=== PATIENT | female | born 1955 | race Hispanic/Latino ===

== ENCOUNTER 2017-12-29 16:34 | Emergency (ER) | payer OTHER ==
[2017-12-29] MEDS ORDERED: Sodium Chloride 0.9% 1,000 ML IV SCH (17:00)
[2017-12-29] MEDS ORDERED: Iohexol 240 (50 ml) PO ONE (17:01)
--- NOTE | 2017-12-29 17:02 | ED PDOC ---
HPI: General Adult Time Seen by Provider: 12/29/17 16:45 Chief Complaint (Nursing): Back Pain Chief Complaint (Provider): lower back pain, cough, congestion History Per: Patient History/Exam Limitations: no limitations Onset/Duration Of Symptoms: Days (x2) Current Symptoms Are (Timing): Still Present Additional Complaint(s): Selena Ramos is a 62 year old female, with a past medical history of HTN, hypercholesterolemia, breast CA, CVA, CAD with stent and x2 heart attacks, who presents to the emergency department complaining of bilateral lower back pain, cough, congestion, body aches, diarrhea, vomiting, abdominal pain and headache ongoing for x3 days. Patient also reports urinary frequency but states she has been drinking a lot of water. Patient further states headache is similar to previous headaches and is not the worst in her life. Patient reports having the flu shot x2 weeks ago. She took no medications for symptoms. She denies any dysuria, chest pain, shortness of breath, dizziness, numbness, tingling, weakness or other medical complaints. Of note, patient had a fever on arrival to ED. PMD: Dr. Lewis Past Medical History Reviewed: Historical Data, Nursing Documentation, Vital Signs Vital Signs: Last Vital Signs Temp 102.1 F H 12/29/17 16:42 Pulse 92 H 12/29/17 16:42 Resp 18 12/29/17 16:42 BP 175/80 H 12/29/17 16:42 Pulse Ox 96 12/29/17 16:42 - Medical History PMH: CAD, CVA, HTN, Hypercholesterolemia Other PMH: heart attack x2 - Surgical History Surgical History: Coronary Stent - Family History Family History: States: Unknown Family Hx - Home Medications Home Medications: Ambulatory Orders Medication Instructions Recorded Acetaminophen/Diphenhydramine 2 tab PO HS 12/29/17 [Tylenol Pm Ex-Strength Caplet] Atorvastatin [Lipitor] 40 mg PO DAILY 12/29/17 Gabapentin [Neurontin] 300 mg PO BID 12/29/17 Isosorbide Mononitrate [Isosorbide 30 mg PO DAILY 12/29/17 Mononitrate ER] Lisinopril [Prinivil] 5 mg PO DAILY 12/29/17 Metoprolol Succinate [Toprol Xl] 50 mg PO DAILY 12/29/17 Ticagrelor [Brilinta] 90 mg PO BID 12/29/17 - Allergies Allergies/Adverse Reactions: Allergies Allergy/AdvReac Type Severity Reaction Status Date / Time No Known Allergies Allergy Verified 12/29/17 16:42 Review of Systems ROS Statement: Except As Marked, All Systems Reviewed And Found Negative Constitutional: Positive for: Fever, Other (body aches) ENT: Positive for: Nose Congestion Cardiovascular: Negative for: Chest Pain Respiratory: Positive for: Cough. Negative for: Shortness of Breath Gastrointestinal: Positive for: Nausea, Vomiting, Abdominal Pain, Diarrhea Genitourinary Female: Positive for: Frequency. Negative for: Dysuria Musculoskeletal: Positive for: Back Pain (lower) Neurological: Positive for: Headache. Negative for: Weakness, Numbness (tingling), Dizziness Physical Exam - Reviewed Nursing Documentation Reviewed: Yes Vital Signs Reviewed: Yes - Physical Exam Appears: Positive for: Uncomfortable Head Exam: Positive for: ATRAUMATIC, NORMAL INSPECTION, NORMOCEPHALIC Skin: Positive for: Normal Color, Warm, Dry Eye Exam: Positive for: Normal appearance, EOMI, PERRL ENT: Positive for: Normal ENT Inspection, Nasal Congestion (mild). Negative for: Pharyngeal Erythema, Tonsillar Exudate, Tonsillar Swelling Neck: Positive for: Normal, Painless ROM, Supple (No tenderness) Cardiovascular/Chest: Positive for: Regular Rate, Rhythm. Negative for: Murmur Respiratory: Positive for: Normal Breath Sounds. Negative for: Respiratory Distress Gastrointestinal/Abdominal: Positive for: Tenderness (mild diffused) Back: Positive for: Normal Inspection. Negative for: L CVA Tenderness, R CVA Tenderness, Vertebral Tenderness Extremity: Positive for: Normal ROM (upper and lower extremities). Negative for: Calf Tenderness, Deformity, Swelling Neurologic/Psych: Positive for: Alert, Oriented. Negative for: Motor/Sensory Deficits, Aphasia, Facial Droop - Laboratory Results Result Diagrams: 12/29/17 17:58 12/29/17 17:58 Interpretation Of Abn Labs: 2.2k, co2 17 - ECG ECG: Positive for: Interpreted By Me, Viewed By Me ECG Rhythm: Positive for: Sinus Rhythm, Nonspecific Changes O2 Sat by Pulse Oximetry: 96 (RA) Pulse Ox Interpretation: Normal - Radiology X-Ray: Interpreted by Me, Viewed By Me X-Ray Interpretation: Infiltrates (R) - Progress ED Course And Treament: 1900: Will replace K. Pt. feeling better. Continue fluids. 1999: Will get cta to eval chest further. Antibiotics for possible pneumonia. 2255: Stable. Feels better. Continue fluids and K tx. Meets sepsis criteria. Spoke with Dr. Steven who will admit. - Critical Care Total Time (In Min): 60 Documented Critical Care: Time excludes all time spent performint seperately billable procedures Medical Decision Making Medical Decision Making: Time: 16:45 Initial Impression: Flu-like symptoms Initial Plan: --VBG --Abd Pelvis PO & IV Contrast [CT] --EKG --CMP --Magnesium --Phosphorus --Troponin I --Urine dip --CBC w/ differential --PTT --PT --Chest portable [RAD] --Tylenol 325 mg tab 975 mg PO --Omnipaque 240 50 ml PO --Reglan 10 mg IV --Sodium Chloride 1,000 ml IV 1,000 mls/hr --Blood culture --Urine culture --Influenza A B --Urinalysis --Reevaluation Scribe Attestation: Documented by Pedro Gayle, acting as a scribe for Graham Rogers MD. Provider Scribe Attestation: All medical record entries made by the Scribe were at my direction and personally dictated by me. I have reviewed the chart and agree that the record accurately reflects my personal performance of the history, physical exam, medical decision making, and the department course for this patient. I have also personally directed, reviewed, and agree with the discharge instructions and disposition. Disposition - Clinical Impression Clinical Impression: Pneumonia, Sepsis, Hypokalemia - Patient ED Disposition Is Patient to be Admitted: Yes Counseled Patient/Family Regarding: Studies Performed, Diagnosis - Disposition Disposition Time: 22:00 Condition: FAIR - Pt Status Changed To: Hospital Disposition Of: Inpatient - Admit Certification Admit to Inpatient:: After my assessment, the patient will require hospitalization for at least two midnights. This is because of the severity of symptoms shown, intensity of services needed, and/or the medical risk in this patient being treated as an outpatient. - POA Present On Arrival: None
[2017-12-29] MEDS ORDERED: Iohexol 240 (50 ml) ONE (17:24)
[2017-12-29 17:29] LABS: VENOUS BLOOD GAS BASE EXCESS -4.3 mmol/L (0.0-2.0); VENOUS BLOOD GAS PCO2 25 mmHg (40-60); VENOUS BLOOD GAS PO2 40 mm/Hg (30-55); VENOUS BLOOD PH 7.46 (7.32-7.43)
[2017-12-29 18:01] LABS: BASO % 0.2 % (0.0-2.0); HEMOGLOBIN 11.4 g/dL (12.0-16.0); LYMPH # 0.7 K/uL (1.0-4.3); LYMPH % 8.6 % (20.0-40.0); MEAN CELL VOLUME 93.3 fl (81.0-99.0); MEAN CORPUSCULAR HEMOGLOBIN 31.5 pg (27.0-31.0); MEAN CORPUSCULAR HGB CONC 33.8 g/dL (33.0-37.0); MEAN PLATELET VOLUME 9.5 fl (7.2-11.7); MONO % 12.8 % (0.0-10.0); NEUT # 6.4 K/uL (1.8-7.0); NEUT % 78.4 % (50.0-75.0); PLATELET COUNT 131 K/uL (130-400); RBC 3.61 Mil/uL (3.80-5.20); RED CELL DISTRIBUTION WIDTH 15.1 % (11.5-14.5); WHITE BLOOD COUNT 8.2 K/uL (4.8-10.8)
[2017-12-29 18:07] LABS: INR 1.3; PROTHROMBIN TIME 14.9 Seconds (9.8-13.1)
[2017-12-29 18:09] LABS: PARTIAL THROMBOPLASTIN TIME 32.9 Seconds (25.6-37.1)
[2017-12-29 18:17] LABS: ALT/SGPT 49 U/L (9-52); AST/SGOT 38 U/L (14-36); BLOOD UREA NITROGEN 11 mg/dl (7-17); CALCIUM 8.7 mg/dL (8.4-10.2); GFR NON-AFRICAN AMERICAN 56
[2017-12-29] MEDS ORDERED: Potassium Chloride 40 MEQ in Sodium Chloride 0.45% 1,000 ML IV SCH (19:00)
[2017-12-29] MEDS ORDERED: cefTRIAXone (Rocephin) 1 gm Inj IV ONE (19:04)
[2017-12-29] MEDS ORDERED: Azithromycin 500 MG in Sodium Chloride 0.9% 250 ML IVPB STA (19:07)
[2017-12-29] MEDS ORDERED: Iohexol 300 100 ML IJ ONE (19:35)
[2017-12-29] MEDS ORDERED: Sodium Chloride 0.9% 50 ML IV ONE (19:35)
[2017-12-29 19:47] LABS: SQUAMOUS EPITHIAL 1 /hpf (0-5); URINE BACTERIA FEW (<OCC); URINE BILIRUBIN NEGATIVE (NEGATIVE); URINE BLOOD SMALL (NEGATIVE); URINE CLARITY CLOUDY (Clear); URINE COLOR YELLOW (YELLOW); URINE GLUCOSE (UA) NEG (Normal); URINE LEUKOCYTE ESTERASE NEG Leu/uL (Negative); URINE PROTEIN 100 mg/dL (NEGATIVE); URINE UROBILINOGEN 0.2-1.0 mg/dL (0.2-1.0)
[2017-12-29 20:03] LABS: ANISOCYTOSIS SLIGHT; LYMPHOCYTE 6 % (20-50); MONOCYTE 10 % (0-10); NEUTROPHIL 84 % (42-75); PLATELET ESTIMATE NORMAL (NORMAL); TOTAL CELLS COUNTED 100
[2017-12-29] MEDS ORDERED: Azithromycin 500 MG IV IVPB ONE (20:11)
[2017-12-29] MEDS ORDERED: Potassium CL 10 MEQ/50 ML 50 ML IVPB ONE ×4 (20:31→20:33)
[2017-12-29] MEDS ORDERED: Iodixanol 320 MG/ML 100 ML BOTTLE IV ONE (21:21)
[2017-12-29] MEDS ORDERED: Potassium CL 10 MEQ/50 ML 50 ML ONE ×2 (22:29→23:36)
[2017-12-29] MEDS ORDERED: cefTRIAXone (Rocephin) 1 gm Inj ONE (22:29)
[2017-12-29 23:50] VITALS: RESP 19
--- NOTE | 2017-12-29 23:55 | CP.PCM.HP ---
Addendum entered and electronically signed by Ruth Tello MD 12/30/17 02:06: After pt was seen in the ED along with attending Dr. Steven, pt made it known she did not want to be admitted and wanted to sign out against medical advice; risks/benefits discussed as per AMA form. Pt signed out AMA while still in ED. Original Note: <Ruth Tello - Last Filed: 12/30/17 01:38> History of Present Illness - History of Present Illness History of Present Illness: 62 yo F with PMH stroke (2017), [place] x2 (last in August 2017, with stent placement), breast cancer treated with chemotherapy, s/p double mastectomy in 2006, presented to the ED with complaints of headache, nausea, fever, abdominal pain/discomfort, and pain in "right lung" upon taking a deep breath; being admitted for pneumonia. She did not take any medications at home for her symptoms. On arrival to ED, she was febrile to 102.1, BP 175/80, HR 92, RR 18, O2 98 She was also found to be hypokalemic at 2.2. EKG showed NSR with nonspecific changes. CT chest/abd/pelvic in ED showed no evidence of pulmonary embolism, but showed mass like area of consolidation in right middle lobe. She received 975 mg acetaminophen with resolution of fever, 30 mEq potassium chloride, 10 mg reglan, 500 mg azithromycin IVPB, and 1gm ceftriaxone IVPB. Meds: atorvastatin, gabapentin, isosorbide mononitrate, lisinopril, metoprolol succinate, ticagrelor Social hx: former smoker, denies alcohol use Surg hx: double mastectomy Med hx: as above Present on Admission - Present on Admission Any Indicators Present on Admission: No Review of Systems - Review of Systems All systems: reviewed and no additional remarkable complaints except - Constitutional Constitutional: Fever Additional comments: body aches - Cardiovascular Cardiovascular: absent: Chest Pain - Respiratory Respiratory: Cough. absent: Dyspnea, Wheezing - Gastrointestinal Gastrointestinal: Nausea, Vomiting - Genitourinary Genitourinary: absent: Dysuria - Musculoskeletal Musculoskeletal: Back Pain - Neurological Neurological: Headaches Past Patient History - Past Social History Smoking Status: Light Smoker < 10 Cigarettes Daily - CARDIAC Hx Hypercholesterolemia: Yes Hx Hypertension: Yes - NEUROLOGICAL Hx Neurological Disorder: Yes HX Cerebrovascular Accident: Yes - HEMATOLOGICAL/ONCOLOGICAL Hx Cancer: Yes (breast) - PSYCHIATRIC Hx Substance Use: No - SURGICAL HISTORY Hx Coronary Stent: Yes Hx Mastectomy: Yes (double) Meds Allergies/Adverse Reactions: Allergies Allergy/AdvReac Type Severity Reaction Status Date / Time No Known Allergies Allergy Verified 12/29/17 16:42 Physical Exam - Constitutional Appears: No Acute Distress Additional comments: sleepy - Head Exam Head Exam: NORMAL INSPECTION - Eye Exam Eye Exam: Normal appearance - ENT Exam ENT Exam: Mucous Membranes Moist - Respiratory Exam Respiratory Exam: NORMAL BREATHING PATTERN. absent: Wheezes, Respiratory Distress Additional comments: good air entry and movement bilaterally - Cardiovascular Exam Cardiovascular Exam: REGULAR RHYTHM, +S1, +S2 - GI/Abdominal Exam GI & Abdominal Exam: Soft Additional comments: mild diffuse tenderness - Extremities Exam Extremities exam: Positive for: normal inspection. Negative for: calf tenderness, pedal edema - Back Exam Back exam: NORMAL INSPECTION. absent: CVA tenderness (L), CVA tenderness (R) - Neurological Exam Neurological exam: Alert, Oriented x3 - Psychiatric Exam Psychiatric exam: Anxious - Skin Skin Exam: Dry, Normal Color, Warm Results - Vital Signs Recent Vital Signs: Last Vital Signs Temp 100.7 F H 12/29/17 18:55 Pulse 66 12/29/17 21:00 Resp 16 12/29/17 21:00 BP 149/77 12/29/17 21:00 Pulse Ox 96 12/29/17 23:00 - Labs Result Diagrams: 12/29/17 17:58 12/29/17 17:58 Labs: Laboratory Results - last 24 hr 12/29/17 12/29/17 12/29/17 17:14 17:14 17:24 WBC RBC Hgb Hct MCV MCH MCHC RDW Plt Count MPV Neut % (Auto) Lymph % (Auto) [place] % (Auto) Eos % (Auto) Baso % (Auto) Neut # (Auto) Lymph # (Auto) [place] # (Auto) Eos # (Auto) Baso # (Auto) Neutrophils % (Manual) Lymphocytes % (Manual) Monocytes % (Manual) Platelet Estimate Anisocytosis (manual) PT Cancelled INR Cancelled APTT Cancelled pO2 40 VBG pH 7.46 H VBG pCO2 25 L VBG HCO3 21.1 VBG Total CO2 18.6 L VBG O2 Sat (Calc) 84.4 H VBG Base Excess -4.3 L VBG Potassium 2.3 L* Sodium 135.0 Chloride 108.0 H Glucose 115 H Lactate 1.0 FiO2 21.0 Crit Value Called To Dr brenda humphries Crit Value Called By 292 Crit Value Read Back Y Blood Gas Notified Time 1728 Potassium Carbon Dioxide Anion Gap BUN Creatinine Est GFR ( Amer) Est GFR (Non-Af Amer) Random Glucose Calcium Phosphorus Magnesium Total Bilirubin AST ALT Alkaline Phosphatase Troponin I Total Protein Albumin Globulin Albumin/Globulin Ratio Venous Blood Potassium 2.3 L* Urine Color Urine Clarity Urine pH Ur Specific [place] Urine Protein Urine Glucose (UA) Urine Ketones Urine Blood Urine Nitrate Urine Bilirubin Urine Urobilinogen Ur Leukocyte Esterase Urine RBC (Auto) Urine Microscopic WBC Ur Squamous Epith Cells Urine Bacteria Influenza Typ A,B (EIA) Negative for flu a/b 12/29/17 12/29/17 12/29/17 17:30 17:58 17:58 WBC 8.2 RBC 3.61 L Hgb 11.4 L Hct 33.7 L MCV 93.3 MCH 31.5 H MCHC 33.8 RDW 15.1 H Plt Count 131 MPV 9.5 Neut % (Auto) 78.4 H Lymph % (Auto) 8.6 L [place] % (Auto) 12.8 H Eos % (Auto) 0.0 Baso % (Auto) 0.2 Neut # (Auto) 6.4 Lymph # (Auto) 0.7 L [place] # (Auto) 1.0 H Eos # (Auto) 0.0 Baso # (Auto) 0.0 Neutrophils % (Manual) 84 H Lymphocytes % (Manual) 6 L Monocytes % (Manual) 10 Platelet Estimate Normal Anisocytosis (manual) Slight PT INR APTT pO2 VBG pH VBG pCO2 VBG HCO3 VBG Total CO2 VBG O2 Sat (Calc) VBG Base Excess VBG Potassium Sodium 137 Chloride 113 H Glucose Lactate FiO2 Crit Value Called To Crit Value Called By Crit Value Read Back Blood Gas Notified Time Potassium 2.2 L* Carbon Dioxide 17 L Anion Gap 9 L BUN 11 Creatinine 1.0 Est GFR ( Amer) > 60 Est GFR (Non-Af Amer) 56 Random Glucose 107 H Calcium 8.7 Phosphorus 1.7 L Magnesium 1.9 Total Bilirubin 1.3 AST 38 H ALT 49 Alkaline Phosphatase 92 Troponin I 0.0670 Total Protein 6.1 L Albumin 3.0 L Globulin 3.0 Albumin/Globulin Ratio 1.0 Venous Blood Potassium Urine Color Yellow Urine Clarity Cloudy Urine pH 7.0 Ur Specific [place] 1.009 Urine Protein 100 Urine Glucose (UA) Neg Urine Ketones Negative Urine Blood Small Urine Nitrate Negative Urine Bilirubin Negative Urine Urobilinogen 0.2-1.0 Ur Leukocyte Esterase Neg Urine RBC (Auto) 10 H Urine Microscopic WBC 5 Ur Squamous Epith Cells 1 Urine Bacteria Few H Influenza Typ A,B (EIA) 12/29/17 17:58 WBC RBC Hgb Hct MCV MCH MCHC RDW Plt Count MPV Neut % (Auto) Lymph % (Auto) [place] % (Auto) Eos % (Auto) Baso % (Auto) Neut # (Auto) Lymph # (Auto) [place] # (Auto) Eos # (Auto) Baso # (Auto) Neutrophils % (Manual) Lymphocytes % (Manual) Monocytes % (Manual) Platelet Estimate Anisocytosis (manual) PT 14.9 H INR 1.3 APTT 32.9 pO2 VBG pH VBG pCO2 VBG HCO3 VBG Total CO2 VBG O2 Sat (Calc) VBG Base Excess VBG Potassium Sodium Chloride Glucose Lactate FiO2 Crit Value Called To Crit Value Called By Crit Value Read Back Blood Gas Notified Time Potassium Carbon Dioxide Anion Gap BUN Creatinine Est GFR ( Amer) Est GFR (Non-Af Amer) Random Glucose Calcium Phosphorus Magnesium Total Bilirubin AST ALT Alkaline Phosphatase Troponin I Total Protein Albumin Globulin Albumin/Globulin Ratio Venous Blood Potassium Urine Color Urine Clarity Urine pH Ur Specific [place] Urine Protein Urine Glucose (UA) Urine Ketones Urine Blood Urine Nitrate Urine Bilirubin Urine Urobilinogen Ur Leukocyte Esterase Urine RBC (Auto) Urine Microscopic WBC Ur Squamous Epith Cells Urine Bacteria Influenza Typ A,B (EIA) Assessment & Plan - Assessment and Plan (Free Text) Assessment: 62 yo F with hx hypertension, hypercholesterolemia, myocardial infarction x2, CVA, admitted for right middle lobe pneumonia. Plan: # Community acquired pneumonia - continue azithromycin and rocephin - IV normal saline - blood culture results pending - pulmonology consult # Hypokalemia - s/p 30 mEq KCl - repeat BMP in am # Hypertension - Resume home meds # Hyperlipidemia - Resume home meds # DVT prophylaxis - SCD for now <Yoel Steven - Last Filed: 12/30/17 05:05> Results - Vital Signs Recent Vital Signs: Last Vital Signs Temp 97.5 F L 12/29/17 23:48 Pulse 65 12/29/17 23:48 Resp 19 12/29/17 23:48 BP 144/87 12/29/17 23:48 Pulse Ox 97 12/29/17 23:48 - Labs Result Diagrams: 12/29/17 17:58 12/29/17 17:58 Labs: Laboratory Results - last 24 hr 12/29/17 12/29/17 12/29/17 17:14 17:14 17:24 WBC RBC Hgb Hct MCV MCH MCHC RDW Plt Count MPV Neut % (Auto) Lymph % (Auto) [place] % (Auto) Eos % (Auto) Baso % (Auto) Neut # (Auto) Lymph # (Auto) [place] # (Auto) Eos # (Auto) Baso # (Auto) Neutrophils % (Manual) Lymphocytes % (Manual) Monocytes % (Manual) Platelet Estimate Anisocytosis (manual) PT Cancelled INR Cancelled APTT Cancelled pO2 40 VBG pH 7.46 H VBG pCO2 25 L VBG HCO3 21.1 VBG Total CO2 18.6 L VBG O2 Sat (Calc) 84.4 H VBG Base Excess -4.3 L VBG Potassium 2.3 L* Sodium 135.0 Chloride 108.0 H Glucose 115 H Lactate 1.0 FiO2 21.0 Crit Value Called To Dr brenda humphries Crit Value Called By 292 Crit Value Read Back Y Blood Gas Notified Time 1728 Potassium Carbon Dioxide Anion Gap BUN Creatinine Est GFR ( Amer) Est GFR (Non-Af Amer) Random Glucose Calcium Phosphorus Magnesium Total Bilirubin AST ALT Alkaline Phosphatase Troponin I Total Protein Albumin Globulin Albumin/Globulin Ratio Venous Blood Potassium 2.3 L* Urine Color Urine Clarity Urine pH Ur Specific [place] Urine Protein Urine Glucose (UA) Urine Ketones Urine Blood Urine Nitrate Urine Bilirubin Urine Urobilinogen Ur Leukocyte Esterase Urine RBC (Auto) Urine Microscopic WBC Ur Squamous Epith Cells Urine Bacteria Influenza Typ A,B (EIA) Negative for flu a/b 12/29/17 12/29/17 12/29/17 17:30 17:58 17:58 WBC 8.2 RBC 3.61 L Hgb 11.4 L Hct 33.7 L MCV 93.3 MCH 31.5 H MCHC 33.8 RDW 15.1 H Plt Count 131 MPV 9.5 Neut % (Auto) 78.4 H Lymph % (Auto) 8.6 L [place] % (Auto) 12.8 H Eos % (Auto) 0.0 Baso % (Auto) 0.2 Neut # (Auto) 6.4 Lymph # (Auto) 0.7 L [place] # (Auto) 1.0 H Eos # (Auto) 0.0 Baso # (Auto) 0.0 Neutrophils % (Manual) 84 H Lymphocytes % (Manual) 6 L Monocytes % (Manual) 10 Platelet Estimate Normal Anisocytosis (manual) Slight PT INR APTT pO2 VBG pH VBG pCO2 VBG HCO3 VBG Total CO2 VBG O2 Sat (Calc) VBG Base Excess VBG Potassium Sodium 137 Chloride 113 H Glucose Lactate FiO2 Crit Value Called To Crit Value Called By Crit Value Read Back Blood Gas Notified Time Potassium 2.2 L* Carbon Dioxide 17 L Anion Gap 9 L BUN 11 Creatinine 1.0 Est GFR ( Amer) > 60 Est GFR (Non-Af Amer) 56 Random Glucose 107 H Calcium 8.7 Phosphorus 1.7 L Magnesium 1.9 Total Bilirubin 1.3 AST 38 H ALT 49 Alkaline Phosphatase 92 Troponin I 0.0670 Total Protein 6.1 L Albumin 3.0 L Globulin 3.0 Albumin/Globulin Ratio 1.0 Venous Blood Potassium Urine Color Yellow Urine Clarity Cloudy Urine pH 7.0 Ur Specific [place] 1.009 Urine Protein 100 Urine Glucose (UA) Neg Urine Ketones Negative Urine Blood Small Urine Nitrate Negative Urine Bilirubin Negative Urine Urobilinogen 0.2-1.0 Ur Leukocyte Esterase Neg Urine RBC (Auto) 10 H Urine Microscopic WBC 5 Ur Squamous Epith Cells 1 Urine Bacteria Few H Influenza Typ A,B (EIA) 12/29/17 17:58 WBC RBC Hgb Hct MCV MCH MCHC RDW Plt Count MPV Neut % (Auto) Lymph % (Auto) [place] % (Auto) Eos % (Auto) Baso % (Auto) Neut # (Auto) Lymph # (Auto) [place] # (Auto) Eos # (Auto) Baso # (Auto) Neutrophils % (Manual) Lymphocytes % (Manual) Monocytes % (Manual) Platelet Estimate Anisocytosis (manual) PT 14.9 H INR 1.3 APTT 32.9 pO2 VBG pH VBG pCO2 VBG HCO3 VBG Total CO2 VBG O2 Sat (Calc) VBG Base Excess VBG Potassium Sodium Chloride Glucose Lactate FiO2 Crit Value Called To Crit Value Called By Crit Value Read Back Blood Gas Notified Time Potassium Carbon Dioxide Anion Gap BUN Creatinine Est GFR ( Amer) Est GFR (Non-Af Amer) Random Glucose Calcium Phosphorus Magnesium Total Bilirubin AST ALT Alkaline Phosphatase Troponin I Total Protein Albumin Globulin Albumin/Globulin Ratio Venous Blood Potassium Urine Color Urine Clarity Urine pH Ur Specific [place] Urine Protein Urine Glucose (UA) Urine Ketones Urine Blood Urine Nitrate Urine Bilirubin Urine Urobilinogen Ur Leukocyte Esterase Urine RBC (Auto) Urine Microscopic WBC Ur Squamous Epith Cells Urine Bacteria Influenza Typ A,B (EIA) Attending/Attestation - Attestation I have personally seen and examined this patient.: Yes I have fully participated in the care of the patient.: Yes I have reviewed all pertinent clinical information: Yes Notes (Text): 12/30/17 04:31 I saw and examined this patient shoulder to shoulder with Dr Tello. The assessment and plan represent my direct input. This is a 62 years old female with hx of CVA right side weakness, Right breast Cancer with bilateral mastec diane, comes with fever,cough, body aches and CT chest showing a mass like area of consolidation in right middle lobe. She also had Hypokalemia . She was treated with Azithromycin and Ceftriaxone in the Ed. She was then admitted. The patient then decided that she would sign against medical advice. The risk was explained to her.She wanted to go home and see her PMD in the morning.She was awake and alert, well oriented and was able to repeat the risk of not continuing treatment for the Hypokalemia and ppneumonia. PATIENT SIGNED AMA Yoel Steven MD 1
[2017-12-30 00:02] VITALS: BP 144/87; PULSE 65; TEMP 97.5; O2SAT 97
--- NOTE | 2017-12-30 09:16 | RAD ---
Date of service: 12/29/2017 HISTORY: Sepsis Patient COMPARISON: No prior. FINDINGS: LUNGS: Limited patchy density is difficult to exclude at the mid right lung zone laterally, immediately inferior to the minor fissure suggesting right middle lobe presence. Remaining lung yung are clear. PLEURA: No significant pleural effusion identified, no pneumothorax apparent. CARDIOVASCULAR: No aortic atherosclerotic calcification present. Normal cardiac size. No pulmonary vascular congestion. OSSEOUS STRUCTURES: No significant abnormalities. VISUALIZED UPPER ABDOMEN: Normal. OTHER FINDINGS: Bilateral breast implantation. IMPRESSION: Limited patchy airspace disease mid right lung zone laterally. Remainder the examination fails demonstrate other acute interval findings.
--- NOTE | 2017-12-30 11:00 | CARD ---
APPROVED REPORT Date of service: 12/29/2017 EKG Measurement Heart [id number] <Conclusion> Normal sinus rhythm Left ventricular hypertrophy with repolarization abnormality Abnormal ECG
--- NOTE | 2017-12-30 12:11 | CT ---
Date of service: 12/29/2017 PROCEDURE: CT Chest with contrast (Pulmonary Angiogram) HISTORY: chest pain COMPARISON: None available. TECHNIQUE: Axial computed tomography images were obtained of the chest in the pulmonary arterial phase of enhancement. Coronal and sagittal reformatted images were created and reviewed. Intravenous contrast dose: 98 cc Visipaque 320 Mean Hounsfield value in the main pulmonary artery: 340.60 Radiation dose: Total exam DLP = 536.60 mGy-cm. This CT exam was performed using one or more of the following dose reduction techniques: Automated exposure control, adjustment of the mA and/or kV according to patient size, and/or use of iterative reconstruction technique. FINDINGS: PULMONARY ARTERIES: Unremarkable. No pulmonary embolism. AORTA: No acute findings. No thoracic aortic aneurysm. No atherosclerotic calcification or mural plaque present. LUNGS: Right middle lobe infiltrate likely acute pneumonia. PLEURAL SPACES: Unremarkable. No effusion or pneumothorax. HEART: Unremarkable. No cardiomegaly. No significant pericardial effusion. LYMPH NODES: No lymphadenopathy. BONES, CHEST WALL: Unremarkable. No fracture or destructive lesion OTHER FINDINGS: Cholelithiasis without CT evidence of acute cholecystitis. Bilateral breast prostheses noted. IMPRESSION: Right middle lobe infiltrate/pneumonia. Follow-up to resolution recommended. Cholelithiasis without CT evidence of acute cholecystitis. Concordant results (preliminary interpretation) provided by [employer]. Procedure Completed: 21:34. Preliminary Report: Dictated and Authenticated: 22:45. Final Interpretation: 12:07.
--- NOTE | 2017-12-30 12:17 | CT ---
Date of service: 12/29/2017 PROCEDURE: CT Abdomen and Pelvis with contrast HISTORY: Abdominal pain. COMPARISON: None. TECHNIQUE: Intravenous contrast dose: 98 cc Visipaque 320. Radiation dose: Total exam DLP = 536.30 mGy-cm. This CT exam was performed using one or more of the following dose reduction techniques: Automated exposure control, adjustment of the mA and/or kV according to patient size, and/or use of iterative reconstruction technique. FINDINGS: LOWER THORAX: Incompletely visualize right middle lobe pneumonia. LIVER: Hepatic steatosis. No focal masses. No intrahepatic bile duct dilatation or perihepatic ascites. GALLBLADDER AND BILE DUCTS: Cholelithiasis without CT evidence of acute cholecystitis. PANCREAS: Unremarkable. No gross lesion or ductal dilatation. SPLEEN: Unremarkable. ADRENALS: Unremarkable. No mass. KIDNEYS AND URETERS: Unremarkable. No hydronephrosis. No solid mass. VASCULATURE: Unremarkable. No aortic aneurysm. No atherosclerotic calcification or mural plaque present. BOWEL: Constipation without fecal impaction or obstruction. APPENDIX: Normal appendix. PERITONEUM: Unremarkable. No free fluid. No free air. LYMPH NODES: Unremarkable. No enlarged lymph nodes. BLADDER: Unremarkable. REPRODUCTIVE: Unremarkable. BONES: No acute fracture. OTHER FINDINGS: None. IMPRESSION: No acute findings related to/accounting for the clinical presentation. Cholelithiasis without CT evidence of acute cholecystitis. Additional benign and/or incidental findings described above. Concordant results (preliminary interpretation) provided by [facility]. Procedure Completed: 21:36. Preliminary Report: Dictated and Authenticated: 22:45. Final Interpretation: 12:13. December 30, 2017
== END 2017-12-30 01:03 | disposition left against medical advice (07) ==
LOC: H.ER 16:34 → UNDOADMIN 23:00 → H.ERHOLD 23:00
DX: E87.6 Hypokalemia (principal); Z95.5 Presence of coronary angioplasty implant and graft; Z92.21 Personal history of antineoplastic chemotherapy; Z86.73 Personal history of transient ischemic attack (TIA), and cerebral infarction without residual deficits; Z85.3 Personal history of malignant neoplasm of breast; I25.2 Old myocardial infarction; I10 Essential (primary) hypertension; Z79.899 Other long term (current) drug therapy; F17.210 Nicotine dependence, cigarettes, uncomplicated; E78.00 Pure hypercholesterolemia, unspecified
CPT/HCPCS: 71045; 71275; 74177; 80053; 81003; 82803; 83735; 84100; 84484; 85025; 85610; 85730; 87040; 87086; 87804; 93005; 96361; 96374; 96375; 99285; J0456; J0696; J2765; J3480; J7030; J7050; Q9966; Q9967